=== PATIENT | male | born 1970 | race Caucasian/White ===

== ENCOUNTER 2022-12-13 20:03 | Emergency (ER) | payer OTHER ==
[2022-12-13 20:47] VITALS: TEMP 96.2
[2022-12-13] MEDS ORDERED: GlucaGen 1 MG IV ONE (20:59)
[2022-12-13 21:06] VITALS: BP 147/78; O2SAT 94
[2022-12-13] MEDS ORDERED: GlucaGen 1 MG ONE (21:12)
--- NOTE | 2022-12-13 21:32 | ERPHSYRPT ---
- History of Present Illness Source: patient Exam Limitations: no limitations Patient Subjective Stated Complaint: " I was eating meat and mashed potatoes around 6pm and I think a piece of meat stuck in my throat. It's making it hard to breathe. I've been trying to cough it up and trying to vomit." Triage Nursing Assessment: Pt presents to ER with spouse. Pt states he was eating dinner this evening and got chocked on a piece of cubed steak. Believes it just didn't go down. Upon exam, I could not visualize the meat. Pt does appear to be in pain. Pt rates pain 10/10 scale. Skin is pink, warm, and dry. Respirations are easy and lungs clear at this time. Does complain of some shortness of breath. Pt is alert and oriented x 3. Attempts to gag and vomit with only small secretions being vomited out. Physician History: 52 yo WM w CP w esophageal food impaction(meat) since 1799. Pain is mild to moderate. He denies chest pain/dyspnea/nausea/vomiting/diarrhea/fever. Pt has never had a food impaction before. Timing/Duration: other (1799) Severity: moderate Modifying Factors: Improves With: nothing Associated Symptoms: denies symptoms Allergies/Adverse Reactions: No Known Drug Allergies Allergy (Verified 12/13/22 20:47) Home Medications: No Reportable Medications [No Reported Medications] 12/13/22 [History] Hx Tetanus, Diphtheria Vaccination/Date Given: Yes Hx Influenza Vaccination/Date Given: Yes Hx Pneumococcal Vaccination/Date Given: No Immunizations Up to Date: Yes Travel Risk - International Travel Have you traveled outside of the country in past 3 weeks: No - Coronavirus Screening Are you exhibiting any of the following symptoms?: No Close contact with a COVID-19 positive Pt in past 14-21 Days: No - Vaccine Status Have you recieved a Covid-19 vaccination: Yes 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 - Vaccination Dates Date of 2cond Vaccination (if applicable): 2020 - Review of Systems All Other Systems: Reviewed and Negative - Past Medical History Pertinent Past Medical History: Yes Musculoskeletal History: Other Other Medical History: CP - Past Surgical History Past Surgical History: No - Social History Smoking Status: Never smoker Exposure to second hand smoke: No Drug Use: none Patient Lives Alone: No - Nursing Vital Signs Nursing Vital Signs: Initial Vital Signs Temperature 96.2 F 12/13/22 20:39 Pulse Rate 111 H 12/13/22 20:39 Respiratory Rate 18 12/13/22 20:39 Blood Pressure 145/98 12/13/22 20:39 O2 Sat by Pulse Oximetry 97 12/13/22 20:39 Pain Scale Pain Intensity 10 Tachy/hypertensive - Physical Exam General Appearance: no apparent distress Eye Exam: PERRL/EOMI, eyes nml inspection Ears, Nose, Throat Exam: normal ENT inspection, TMs normal, pharynx normal, moist mucous membranes Neck Exam: normal inspection, non-tender, supple, full range of motion, No meningismus, No mass, No Brudzinski, No Kernig's, No lymphadenopathy Respiratory Exam: normal breath sounds, lungs clear, airway intact Cardiovascular Exam: tachycardia, capillary refill <2 sec Gastrointestinal/Abdomen Exam: soft, normal bowel sounds, No tenderness Back Exam: normal inspection, normal range of motion, No CVA tenderness, No vertebral tenderness Extremity Exam: normal inspection, normal range of motion Neurologic Exam: alert, oriented x 3, 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, 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, normal mood/affect, sensation nml, No motor deficits, No sensory deficit Skin Exam: normal color, warm, dry, No rash Lymphatic Exam: No adenopathy SpO2 Interpretation: normal SpO2: 94 O2 Delivery: Room Air - Course Nursing assessment & vital signs reviewed: Yes Ordered Tests: Active Orders 24 hr Category Date Time Status IV Insertion STAT Care 12/13/22 20:59 Active Medication Summary Generic Name Dose Route Start Last Admin Trade Name Freq PRN Reason Stop Dose Admin Lactated Ringer's 1,000 mls @ 100 mls/hr 12/13/22 22:00 12/13/22 21:53 Lactated Ringers IV 01/12/23 21:59 100 mls/hr .Q10H ANTHONY Administration Discontinued Medications Generic Name Dose Route Start Last Admin Trade Name Freq PRN Reason Stop Dose Admin Fentanyl Citrate 25 mcg 12/13/22 21:33 Fentanyl Citrate 100 Mcg/2 Ml* Vial IV 12/13/22 21:34 STAT ONE Glucagon 1 mg 12/13/22 20:59 12/13/22 21:14 Glucagon 1 Mg/Vial Vial IV 12/13/22 21:00 1 mg STAT ONE Administration Glucagon Confirm 12/13/22 21:12 Glucagon 1 Mg/Vial Vial Administered 12/13/22 21:13 Dose 1 mg .ROUTE .STK-MED ONE Ondansetron HCl 4 mg 12/13/22 21:35 12/13/22 21:53 Ondansetron Hcl 4 Mg/2 Ml Vial IV 12/13/22 21:36 4 mg STAT ONE Administration Ondansetron HCl Confirm 12/13/22 21:49 Ondansetron Hcl 4 Mg/2 Ml Vial Administered 12/13/22 21:50 Dose 4 mg .ROUTE .STK-MED ONE Pantoprazole Sodium 40 mg 12/13/22 21:35 12/13/22 21:53 Pantoprazole 40 Mg Vial IV 12/13/22 21:36 40 mg STAT ONE Administration Pantoprazole Sodium Confirm 12/13/22 21:49 Pantoprazole 40 Mg Vial Administered 12/13/22 21:50 Dose 40 mg IV .STK-MED ONE - Progress Progress Note: 12/13/22 22:15 Nursing note and vital signs reviewed No food or housing insecurities noted Additional history per IV access started 1mg IV glucagon wo resolution of food bolus Spoke w Dr. Buchanan who will scope pt at 22:00 Pt refused pain meds 40mg IV Protonix/4mg IV Zofran Counseled pt/family regarding: diagnosis, need for follow-up Medical Desision Making - Independent Historian Additional History obtained from: Spouse - Risk of complications The pt has a mod risk of morbidity or mortality based on: Need for major surgery in otherwise healthy patient - Departure Departure Disposition: Transfer Clinical Impression: Food impaction of esophagus Condition: Stable Critical Care Time: No Referrals: ALBA MARTINES [Primary Care Provider] - Follow up/PCP as directed Instructions: Food Obstruction
[2022-12-13] MEDS ORDERED: SUBLIMAZE 100 MCG/2 ML IV ONE (21:33)
[2022-12-13] MEDS ORDERED: Zofran 4 MG/2 ML VIAL IV ONE (21:35)
[2022-12-13] MEDS ORDERED: PROTONIX 40 MG IV IV ONE ×2 (21:35→21:49)
[2022-12-13] MEDS ORDERED: Zofran 4 MG/2 ML VIAL ONE ×2 (21:49→22:22)
[2022-12-13] MEDS ORDERED: Lactated Ringers 1,000 ML IV ONE (21:50)
[2022-12-13 21:55] VITALS: PULSE 67; RESP 18
[2022-12-13] MEDS ORDERED: Lactated Ringers 1,000 ML IV SCH (22:00)
[2022-12-13] MEDS ORDERED: BRIDION 200MG/2ML IV ONE ×2 (22:22→22:41)
[2022-12-13] MEDS ORDERED: TORAdol 30 mg Injection ONE (22:22)
[2022-12-13] MEDS ORDERED: Zemuron 100 MG/10 ML ONE ×2 (22:22→22:30)
[2022-12-13] MEDS ORDERED: Xylocaine-Mpf 2% 5 Ml Vial ONE (22:22)
[2022-12-13] MEDS ORDERED: Decadron 4 MG INJ ONE (22:22)
[2022-12-13] MEDS ORDERED: DIPRIVAN 200 MG/20 ML IV ONE (22:22)
[2022-12-13] MEDS ORDERED: SUBLIMAZE 100 MCG/2 ML ONE (22:22)
--- NOTE | 2022-12-14 07:54 | HP ---
CHIEF COMPLAINT: Food bolus in the esophagus. HISTORY OF PRESENT ILLNESS: The patient is a 52-year-old make who came to the emergency room after eating a steak this afternoon around 6 o'clock. The steak food bolus got stuck in his esophagus and not able to push it down. In the emergency room I was asked to see him in consultation for EGD and removal of foreign body. He denies any symptoms of gastroesophageal reflux disease. PAST MEDICAL HISTORY: Seems to be overall unremarkable. PAST SURGICAL HISTORY: Unremarkable. PHYSICAL EXAMINATION: He is alert and oriented. HEENT: Pupils are equal and normoreactive. NECK: Supple. COR: Regular rhythm. ABDOMEN: Soft and tender. EXTREMITIES: Within normal limits and no pedal edema. IMPRESSION: Food bolus in the esophagus. PLAN: Proceed with an EGD with removal of the food bolus.
--- NOTE | 2022-12-14 08:05 | OP ---
SURGERY DATE/TIME: 12/13/20222221 PREOPERATIVE DIAGNOSIS: Food bolus impacted in the esophagus. POSTOPERATIVE DIAGNOSIS: Food bolus impacted in the esophagus. PROCEDURE: EGD with biopsy and removal of the food bolus. SURGEON: James Buchanan M.D. ANESTHESIA: General. ESTIMATED BLOOD LOSS: Minimal. COMPLICATIONS: None. DESCRIPTION OF PROCEDURE AND FINDINGS: The patient was taken to the endoscopy lab and was given general anesthesia with endotracheal tube in place. The scope was introduced and advanced without difficulty in the upper esophagus down to the lower esophagus where a food bolus was noted impacted in the distal esophagus. Then using the basket, we were able to place the food bolus in the basket and retrieve it completely without difficulty. After this was done then the scope was reinserted and the path straight down to the stomach. There was no evidence of malignancy in distal esophagus, mild stricture was noted and then the scope was advanced into the stomach and then negotiated through the pyloric channel to the first and second portion of the duodenum. Biopsy was then taken from the antrum for Helicobacter pylori. The scope was retroflexed and inspected found this to be normal and then using a balloon dilator we dilated the distal esophagus up to 60 Sami or 20 mm. The remainder of the exam was unremarkable. The patient tolerated the procedure well.
== END 2022-12-13 23:26 | disposition home or self-care (01) ==
LOC: ED 20:03
DX: T18.128A Food in esophagus causing other injury, initial encounter (principal)
CPT/HCPCS: 93005; 96374; 96375; 99140; 99284; C1726; J1100; J1610; J1885; J2405; J2704; J3010